=== PATIENT | male | born 1950 | race Hispanic/Latino ===

== ENCOUNTER 2020-02-17 07:33 | Day surgery (SDC) | payer MEDICARE ==
[2020-02-17] MEDS ORDERED: SODIUM CHLORIDE 0.9% 1000ML 1,000 ML IV ONE (08:09)
[2020-02-17 08:20] VITALS: BP 117/60
--- NOTE | 2020-02-17 08:20 | NUR ---
ASSESSMENT PT HERE FOR PROCEDURE. DENIES ANY DISCOMFORT
[2020-02-17] MEDS ORDERED: IOHEXOL-350 50ML VIAL IV ONE (10:53)
[2020-02-17] MEDS ORDERED: IOHEXOL 350 MG/ML 100ML INFUS..BTL IV ONE (10:53)
[2020-02-17 11:35] VITALS: BP 144/84
--- NOTE | 2020-02-17 11:45 | NUR ---
DC DISCHARGE INSTRUCTIONS GIVEN TO PTS DAUGHTER RONNY ON PHONE. INSTRUCTED ON IMPORTANCE OF DRINKING PLENTY OF FLUIDS AT HOME. BOTH VERBALIZED UNDERSTANDING.
== END 2020-02-17 11:45 | disposition home or self-care (01) ==
LOC: DAH 07:33 → EDSTATUS 08:00 → DAH 11:45
PROVIDERS: ATTEND Internal Medicine Cardiovascular Disease
DX: I73.9 Peripheral vascular disease, unspecified (principal)
CPT/HCPCS: 75635; 96360; 96361; A4215; A4216; A4221; A4222; A4223 ×3; A4606; A4663; J7030; Q9967 ×2

== ENCOUNTER 2020-05-05 07:11 | Inpatient (IN) | payer MEDICARE ==
[2020-04-30 15:16] LABS: BASOPHILS % (AUTO) 0.9 % (0.0-5.0); EOSINOPHILS % (AUTO) 2.7 % (0.0-8.0); HEMATOCRIT 41.1 % (42-54); LYMPHOCYTES % (AUTO) 17.3 % (21.0-51.0); MEAN CORPUSCULAR HEMOGLOBIN 29.4 pg (27.0-33.0); MEAN CORPUSCULAR HGB CONC 32.1 g/dL (32.0-36.0); MEAN CORPUSCULAR VOLUME 91.5 fL (79-99); MONOCYTES % (AUTO) 10.4 % (3.0-13.0); NEUTROPHILS % (AUTO) 68.2 % (40.0-77.0); PLATELET COUNT (AUTO) 63 K/uL (130-400); RED BLOOD CELL COUNT(AUTO) 4.49 MIL/uL (4.50-6.20); RED CELL DISTRIBUTION WIDTH 14.6 % (11.0-15.5); WHITE BLOOD COUNT (AUTO) 5.9 K/uL (4.8-10.8)
[2020-04-30 15:31] LABS: INR 0.99 (0.85-1.15); PARTIAL THROMBOPLASTIN TIME 57.3 SEC (26.3-35.5); PROTHROMBIN TIME 10.7 SEC (9.6-11.6)
[2020-04-30 15:35] LABS: HEMOGLOBIN A1C 5.2 % (4.0-6.0)
[2020-04-30 15:39] LABS: ALBUMIN 3.9 g/dL (3.5-5.0); BILIRUBIN,TOTAL 0.6 mg/dL (0.2-1.0); CREATININE 2.3 mg/dL (0.5-1.5); POTASSIUM 4.5 mmol/L (3.5-5.1); TOTAL PROTEIN, SERUM 7.2 g/dL (6.0-8.3)
--- NOTE | 2020-05-04 11:42 | NUR ---
LABS ABNORMAL PLT REPORTED TO DR. KOEHLER , MESSAGE LEFT WITH LETTY SHEA RN. TO CALL BACK WITH ANY ORDERS
[~2020-05-05] VITALS: Ht 175.3 cm; Wt 83.9 kg
[2020-05-05] VITALS (20 sets, daily range): BP systolic 120–175; BP diastolic 52–92
[~2020-05-05 07:11] MED LIST: ACET-66 PO; AEC81 PO; ALBU90AE2 IH; ATOR40TA69 PO; CETI10TA86 PO; CITA10TA7 PO; CLOP75TA14 PO; FERS325 PO; FOLIC ACID PO; HYDRODIURIL PO; METO50TA18 PO; NITR0.4T50 SL; PANT40TA54 PO; TAMS-1 PO; TRAZ-185 PO; VITAMIN D PO
[2020-05-05] MEDS ORDERED: LACTATED RINGERS 1000ML 1,000 ML IV ONE (09:33)
--- NOTE | 2020-05-05 10:10 | NUR ---
PT PREPPED FOR SURGERY. PT IS UNRELIABLE HISTORIAN AND STATES HE TOOK ALL HIS AM MEDS TODAY. HE IS TAKING PLAVIX AND ASPIRIN, DR KOEHLER MADE AWARE. 2 UNITS PRBC/1 PLT ORDERED TO BE ON HAND FOR SURGERY. PT HAS POSITIVE ANTIBODY SCREEN AND BLOOD BANK IS WORKING ON CROSSMATCH NOW.
[2020-05-05] MEDS ORDERED: ALBUTEROL INHALER 90MCG/INH IH PRN ×2 (10:45→13:30)
[2020-05-05] MEDS ORDERED: NITROGLYCERIN 0.4 MG SL TAB SL PRN (10:45)
[2020-05-05] MEDS ORDERED: GLYCOPYRROLATE 1 MG/5 ML SYRINGE ONE ×2 (11:50→13:32)
[2020-05-05] MEDS ORDERED: DEXAMETHASONE SOD PHOSPHATE 10MG/ML 1ML VIAL ONE (11:50)
[2020-05-05] MEDS ORDERED: SUCCINYLCHOLINE 200MG/10ML SYR ONE (11:50)
[2020-05-05] MEDS ORDERED: PROPOFOL 10 MG/ML 20ML VIAL IV ONE (11:50)
[2020-05-05] MEDS ORDERED: LIDOCAINE PF 2% 5ML ABBOJECT ONE ×2 (11:50→11:51)
[2020-05-05] MEDS ORDERED: NEOSTIGMINE 5MG/5ML SYR IV ONE ×2 (11:51→13:32)
[2020-05-05] MEDS ORDERED: ROCURONIUM 10MG/1ML SYR 10 MG/ML ML ONE (11:51)
[2020-05-05] MEDS ORDERED: ONDANSETRON HCL 4 MG/2 ML VIAL ONE (11:51)
[2020-05-05] MEDS ORDERED: CEFUROXIME SODIUM 1.5 GM VIAL ONE (11:59)
[2020-05-05] MEDS ORDERED: MEPERIDINE-PF 25 MG/ML SYG ONE (12:35)
[2020-05-05] MEDS ORDERED: TRAMADOL HCL 50 MG TABLET PO PRN (13:15)
[2020-05-05] MEDS ORDERED: ACETAMINOPHEN 325 MG TAB PO PRN (13:15)
[2020-05-05] MEDS ORDERED: IPRATROPIUM/ALBUTEROL SULFATE 3 ML SOLUTION IH ONE (14:07)
[2020-05-05] MEDS ORDERED: SUGAMMADEX SODIUM 200 MG/2 ML VIAL IV ONE (14:17)
--- NOTE | 2020-05-05 14:50 | NUR ---
LETTY COREA FROM DR. KOEHLER NOTIFIED OF EVENTS IN PACU. DR. TATUM STATED CHEST X RAY SHOWS INFILTRAION . PT COMFORTABLE WITH RESP EVEN AND UNLABORED. Addendum: 05/05/20 at 1546 by AMIRA TREVIZO RN RN Amended: Links added.
--- NOTE | 2020-05-05 15:15 | NUR ---
PT RECEIVED FROM RECOVERY VIA BED, PT LETHARGIC AND CONGESTED, O2 PER NON-REBREATHER MASK, PER TRANSFERRING NURSE, DR KOEHLER AWARE. PEDAL PULSES WEAK AND PALPABLE, DRSG TO RIGH THIGH AND GROIN DRY AND INTACT. ORIENTED PT TO ROOM AND CALL LIGHT. TELEMETRY MONITORING, CALL LIGHT WITHIN REACH.
--- NOTE | 2020-05-05 16:45 | NUR ---
PT MORE ALERT, DENIES DISCOMFORT, O2 PER NON-REBREATHER, O2 SAT 100%. PEDAL PULSES PALPABLE, DRSG TO SURGICAL INCISIONS CLEAN DRY AND INTACT. TELEMETRY MONITORING
--- NOTE | 2020-05-05 17:15 | NUR ---
PT AWAKE, ALERT, AND ORIENTED. DENIES CHEST PAIN, NO LABORED RESPIRATIONS, O2 PER NC, O2 SAT 100%, LESS CONGESTED. RIGHT GROIN INTACT, NO DRAINAGE, NO HEMATOMA, PEDAL PULSES PALPABLE. CALL LIGHT WITHIN REACH
--- NOTE | 2020-05-05 17:45 | NUR ---
PT DENIES DISCOMFORT, MORE ALERT, NO LABORED RESPIRATIONS, O2 PER NON-REBREATHER MASK, O2 SAT 97-100%. SURGICAL SITES INTACT, NO DRAINAGE, PEDAL PULSES PALPABLE. CALL LIGHT WITHIN REACH.
--- NOTE | 2020-05-05 18:15 | NUR ---
AWAKE AND ALERT, ASSISTANCE WITH URINAL. SURGICAL INCISIONS CLEAN DRY AND INTACT, PEDAL PULSES PRESENT TO BILATERAL LOWER EXTREMITIES. CALL LIGHT WITHIN REACH.
[2020-05-05] MEDS: TRAZODONE HCL 50 MG TAB PO SCH (21:25)
[2020-05-05] MEDS: ATORVASTATIN CALCIUM 40 MG TABLET PO SCH (21:25)
[2020-05-06 00:04] VITALS: BP 120/64
[2020-05-06 03:50] VITALS: BP 146/79
[2020-05-06 05:54] LABS: HEMATOCRIT 35.2 % (42-54); MEAN CORPUSCULAR HEMOGLOBIN 29.2 pg (27.0-33.0); MEAN CORPUSCULAR HGB CONC 31.8 g/dL (32.0-36.0); MEAN CORPUSCULAR VOLUME 91.9 fL (79-99); RED BLOOD CELL COUNT(AUTO) 3.83 MIL/uL (4.50-6.20); RED CELL DISTRIBUTION WIDTH 14.4 % (11.0-15.5); WHITE BLOOD COUNT (AUTO) 7.5 K/uL (4.8-10.8)
[2020-05-06] MEDS ORDERED: CEFUROXIME SODIUM 1.5 GM VIAL IVP SCH (06:00)
[2020-05-06 06:08] LABS: CREATININE 2.1 mg/dL (0.5-1.5)
[2020-05-06 07:30] VITALS: BP 146/70
--- NOTE | 2020-05-06 08:00 | NUR ---
AM ASSESSMENT PT AWAKE AND ALERT, DENIES CHEST PAIN, O2 PER NC. SURGICAL SITES TO RIGHT LEG INTACT, NO DRAINAGE OR HEMATOMA, DRSG CLEAN DRY AND INTACT. RIGHT LEG ELEVATED ON 3 PILLOWS ORDERED WHILE IN BED. AMBULATION AND OOB TO CHAIR ENCOURAGED. CALL LIGHT WITHIN REACH.
[2020-05-06] MEDS: FOLIC ACID 1 MG TABLET PO SCH (08:47)
[2020-05-06] MEDS: METOPROLOL TARTRATE 50 MG TAB PO SCH (08:47)
[2020-05-06] MEDS: CETIRIZINE HCL 5 MG TABLET PO SCH (08:48)
[2020-05-06] MEDS: ASPIRIN 81 MG EC TAB PO SCH (08:48)
[2020-05-06] MEDS: FERROUS SULFATE 325 MG TABLET.DR PO SCH (08:48)
[2020-05-06] MEDS: CITALOPRAM 20 MG TABLET PO SCH (08:48)
[2020-05-06] MEDS: CLOPIDOGREL BISULFATE 75 MG TAB PO SCH (08:48)
[2020-05-06] MEDS: PANTOPRAZOLE SODIUM 40 MG TABLET.DR PO SCH (08:48)
[2020-05-06] MEDS: TAMSULOSIN HCL 0.4 MG CAP.ER.24H PO SCH (08:49)
[2020-05-06] MEDS: HYDRODIURIL PO SCH (08:57)
[2020-05-06] MEDS ORDERED: NON-FORMULARY MEDICATION 1 EACH (Citalopram Hydrobromide (Citalopram HBr) 10 MG) PO SCH (09:00)
--- NOTE | 2020-05-06 10:00 | NUR ---
OOB ATTEMPTED TO AMBULATE PT AND TRANSFER TO CHAIR, PT UNABLE TO AMBULATE, STATES WEAK. SAT ON SIDE OF BED. MD TO BE MADE AWARE
[2020-05-06 11:00] VITALS: BP 153/74
--- NOTE | 2020-05-06 12:00 | NUR ---
AWAKE AND ALERT, RIGHT LEG PEDAL PULSE PALPABLE, ABLE TO MOVE LEG, SENSATION PRESENT.
[2020-05-06 16:00] VITALS: BP 115/61
--- NOTE | 2020-05-06 16:00 | NUR ---
DENIES DISCOMFORT, DRSG TO RIGHT GROIN AND RIGHT THIGH CLEAN DRY AND INTACT, SENSATION PRESENT, SLIGHTLY COOL, UNCHANGED FROM ADMISSION, PEDAL PULSES PALPABLE
--- NOTE | 2020-05-06 16:10 | NUR ---
MET WITH PATIENT AT [facility] FOR DC PLANNING- ALSO CALL TO DTR MET Shayan ROSALES- ON 2, FACE BRUISED, HARD TO UNDERSTAND BUT APPROPRIATE. STATES LIVES ALONE, STATES DRIVES IF NEEDED, STATES USES A WALKER, DOES NOT HAVE A SHOWER CHAIR, IS INDEPENDENT, PROVIDER 9-5 DAILY STATES GOES TO AN ADULT DAY CARE - FELL THERE LAST WEEK. DISCUSSED REHAB WITH PATIENT CALL TO [facility] AT [phone], STATES PATIENT WAS AT [facility] IN PAST, A POSITIVE EXPERIENCE; STATES THAT WOULD BE HCOICE NUMBER ONE' CALL TO PRADIP AT [facility], STATES YES BEDS/ WILL SEND REFERRLA THIS PM. Addendum: 05/06/20 at 1614 by KESHAV CAAL RN Amended: Links added.
--- NOTE | 2020-05-06 17:04 | NUR ---
[facility] FOR [facility] WILL START ON REFERRAL Addendum: 05/06/20 at 1704 by KESHAV CAAL RN CM Amended: Links added.
[2020-05-06 20:00] VITALS: BP 120/59
[2020-05-06] MEDS: ATORVASTATIN CALCIUM 40 MG TABLET PO SCH (20:18)
[2020-05-06] MEDS: TRAZODONE HCL 50 MG TAB PO SCH (20:18)
[2020-05-07] VITALS: BP 118/61
--- NOTE | 2020-05-07 00:47 | NUR ---
PATIENT ALERT AND ORIENTED. HE STATES NAME AND . CONFUSED ABOUT LOCATION. THINKS HE IS AT AN ADULT DAY CARE. REORIENTED PATIENT TO TIME AND LOCATION. DENIES PAIN AND NO SIGNS OF RESPIRATORY DISTRESS. PULSES PALPABLE TO BLE WITH 1+ SWELLING. BLE DISCOLORED. PATIENT HAS RLE ELEVATED ON PILLOWS PER ORDER. WILL CONTINUE TO MONITOR.
[2020-05-07 04:00] VITALS: BP 109/64
[2020-05-07 08:00] VITALS: BP 103/67
[2020-05-07] MEDS: TAMSULOSIN HCL 0.4 MG CAP.ER.24H PO SCH (08:08)
[2020-05-07] MEDS: FERROUS SULFATE 325 MG TABLET.DR PO SCH (08:08)
[2020-05-07] MEDS: CLOPIDOGREL BISULFATE 75 MG TAB PO SCH (08:09)
[2020-05-07] MEDS: FOLIC ACID 1 MG TABLET PO SCH (08:09)
[2020-05-07] MEDS: ASPIRIN 81 MG EC TAB PO SCH (08:09)
[2020-05-07] MEDS: METOPROLOL TARTRATE 50 MG TAB PO SCH (08:09)
[2020-05-07] MEDS: PANTOPRAZOLE SODIUM 40 MG TABLET.DR PO SCH (08:09)
[2020-05-07] MEDS: CETIRIZINE HCL 5 MG TABLET PO SCH (08:09)
[2020-05-07] MEDS: CITALOPRAM 20 MG TABLET PO SCH (08:10)
[2020-05-07] MEDS: HYDRODIURIL PO SCH (08:12)
[2020-05-07 12:00] VITALS: BP 115/62
--- NOTE | 2020-05-07 12:35 | NUR ---
AGAIN SPOKE TO PATIENT AT BEDSIDE WITH DAUGHTER RONNY ON PHONE FOR BAKARI/PLAN OF CARE. REFERRAL TO [facility] ORDER PLACED FOR MIGUEL ÁNGEL RAPID FORMS IN CHART FOR MD TO SIGN ON ROUNDS POSS DC TODAY
[2020-05-07] MEDS: TRAMADOL HCL 50 MG TABLET PO PRN (12:56)
[2020-05-07 16:00] VITALS: BP 109/58
[2020-05-07 20:00] VITALS: BP 132/73
[2020-05-07] MEDS: ATORVASTATIN CALCIUM 40 MG TABLET PO SCH (20:44)
[2020-05-07] MEDS: TRAZODONE HCL 50 MG TAB PO SCH (20:44)
[2020-05-08] VITALS (7 sets, daily range): BP systolic 99–126; BP diastolic 54–64
[2020-05-08] MEDS: PANTOPRAZOLE SODIUM 40 MG TABLET.DR PO SCH (08:45)
[2020-05-08] MEDS: FOLIC ACID 1 MG TABLET PO SCH (08:45)
[2020-05-08] MEDS: CITALOPRAM 20 MG TABLET PO SCH (08:45)
[2020-05-08] MEDS: TAMSULOSIN HCL 0.4 MG CAP.ER.24H PO SCH (08:46)
[2020-05-08] MEDS: ASPIRIN 81 MG EC TAB PO SCH (08:46)
[2020-05-08] MEDS: CLOPIDOGREL BISULFATE 75 MG TAB PO SCH (08:46)
[2020-05-08] MEDS: HYDRODIURIL PO SCH (08:47)
[2020-05-08] MEDS: CETIRIZINE HCL 5 MG TABLET PO SCH (08:47)
[2020-05-08] MEDS: FERROUS SULFATE 325 MG TABLET.DR PO SCH (08:47)
[2020-05-08] MEDS: METOPROLOL TARTRATE 50 MG TAB PO SCH (08:47)
--- NOTE | 2020-05-08 14:30 | NUR ---
RESTING IN RECLINER AT BEDSIDE WITH EYES CLOSED, RESP.'S EVEN AND UNLABORED. CALL LIGHT WITHIN REACH. ROOM DOOR OPEN.
--- NOTE | 2020-05-08 17:15 | NUR ---
SITTING UP EATING DINNER W/O C/O. CALL LIGHT WITHIN REACH. ROOM DOOR OPEN.
[2020-05-08] MEDS: TRAZODONE HCL 50 MG TAB PO SCH (20:45)
[2020-05-08] MEDS: ATORVASTATIN CALCIUM 40 MG TABLET PO SCH (20:45)
[2020-05-09 04:01] VITALS: BP 118/58
[2020-05-09 08:10] VITALS: BP 120/65
[2020-05-09] MEDS: HYDRODIURIL PO SCH (09:00)
[2020-05-09] MEDS: METOPROLOL TARTRATE 50 MG TAB PO SCH (09:30)
[2020-05-09] MEDS: PANTOPRAZOLE SODIUM 40 MG TABLET.DR PO SCH (09:31)
[2020-05-09] MEDS: CETIRIZINE HCL 5 MG TABLET PO SCH (09:31)
[2020-05-09] MEDS: CITALOPRAM 20 MG TABLET PO SCH (09:31)
[2020-05-09] MEDS: CLOPIDOGREL BISULFATE 75 MG TAB PO SCH (09:32)
[2020-05-09] MEDS: FOLIC ACID 1 MG TABLET PO SCH (09:32)
[2020-05-09] MEDS: FERROUS SULFATE 325 MG TABLET.DR PO SCH (09:32)
[2020-05-09] MEDS: TAMSULOSIN HCL 0.4 MG CAP.ER.24H PO SCH (09:32)
[2020-05-09] MEDS: ASPIRIN 81 MG EC TAB PO SCH (09:32)
[2020-05-09] MEDS: TRAMADOL HCL 50 MG TABLET PO PRN (09:33)
--- NOTE | 2020-05-09 10:40 | NUR ---
COVID PCR RESULTS SPOKE TO CASE MANAGEMENT C.C.AND INFORMED THAT NEGATIVE COVID PCR RESULTS ARRIVED TODAY. COVID PCR RESULTS WERE PENDING TO PROCEED WITH TRANSFER [place] [facility].
[2020-05-09 12:03] VITALS: BP 129/67
--- NOTE | 2020-05-09 15:00 | NUR ---
cm note spoke to Shantell charge nurse, and to Dr piedra, at [facility] rehab,faxed covid pcr negative, per shantell, pt is accepted. updated primary nurse,
--- NOTE | 2020-05-09 16:00 | NUR ---
REPORT GIVEN [facility] REPORT GIVEN TO NURSE TANISHA OF [facility] IN [place] [phone]. CONFIRMED MEDICATION RECONCILIATION RECEIVED. TANISHA ASKED IF I COULD CALL EMS AFTER PATIENT E[place] [facility] [place] IF I WOULD CALL EMS NOW THERE MAY BE A CHANCE THAT PATIENT WILL NOT GET [place] [facility]
[2020-05-09 16:13] VITALS: BP 128/71
--- NOTE | 2020-05-09 16:38 | NUR ---
[facility] CALLED TO REPORT THAT PATIENT IN ROOM 422 AND READY TO BE PICKED UP AND TRANSFERRED TO [facility] IN [place].
--- NOTE | 2020-05-09 16:53 | NUR ---
FAMILY CALLED CALLED James PAEZ [phone], PATIENT DAUGHTER, TO NOTIFY OF PATIENT TRANSFER TO [facility] TODAY. NO ANSWER AT THIS TIME.
--- NOTE | 2020-05-09 17:00 | NUR ---
REFAXED [facility] PCS FORM RECIEVED CALL FROM [facility] THAT PCS FORM SECTION II QUESTION 3 "CAN PATIENT BE SAFELY TRANSPORTED BY CAR OR WHEELCHAIR VAN WITHOUT NET LEAD ARCHITECT PRESENT" WAS CHECKED OFF "YES". SPOKE WITH KRISTYN Amaya, UPDATED PCS FORM WITH CORRECTED RESPONSE "NO" AND REFAXED PCS FORM TO [facility] [phone]
[2020-05-09 20:00] VITALS: BP 112/67
[2020-05-12] MEDS ORDERED: ERGOCALCIFEROL (VITAMIN D2) 50,000 UNIT CAPSULE PO SCH (09:00)
== END 2020-05-09 21:00 | DRG 254 ==
LOC: DAHIP 07:11 → 4DH 15:43
PROVIDERS: ADMIT Thoracic Surgery (Cardiothoracic Vascular Surgery); ATTEND Thoracic Surgery (Cardiothoracic Vascular Surgery)
PROC: 30233R1 Transfusion of Nonautologous Platelets into Peripheral Vein, Percutaneous Approach (ICD-10-PCS; 2020-05-05)
PROC: 041K0JL Bypass Right Femoral Artery to Popliteal Artery with Synthetic Substitute, Open Approach (ICD-10-PCS; principal; 2020-05-05 11:49)
DX: I73.9 Peripheral vascular disease, unspecified (principal); E87.70 Fluid overload, unspecified; E78.00 Pure hypercholesterolemia, unspecified; E78.1 Pure hyperglyceridemia; J44.9 Chronic obstructive pulmonary disease, unspecified; I25.10 Atherosclerotic heart disease of native coronary artery without angina pectoris; I48.91 Unspecified atrial fibrillation; I10 Essential (primary) hypertension; E78.5 Hyperlipidemia, unspecified; Z79.02 Long term (current) use of antithrombotics/antiplatelets; Z20.828 Contact with and (suspected) exposure to other viral communicable diseases; Z79.82 Long term (current) use of aspirin; Z79.899 Other long term (current) drug therapy; Z95.1 Presence of aortocoronary bypass graft; Z86.73 Personal history of transient ischemic attack (TIA), and cerebral infarction without residual deficits; Z82.49 Family history of ischemic heart disease and other diseases of the circulatory system
CPT/HCPCS: 36415; 36430; 71045; 71046; 80048; 80053; 83036; 85025; 85027; 85610; 85730; 86850; 86870; 86880; 86900; 86901; 86905; 86922; 87426; 93005; 94640; 97039; A4344; A4606; G0378; J0330; J0697; J1100; J1644; J2001; J2175; J2405; J2704; J2710; J3490; J7030; J7040; J7120; P9034; U0003

== ENCOUNTER 2020-07-22 23:38 | Emergency (ER) | payer MEDICARE ==
[~2020-07-22 23:38] MED LIST changes: -CETI10TA86 PO; +CETI10TA87 PO; -CITA10TA7 PO; +CITA10TA89 PO
[2020-07-22] MEDS ORDERED: 0.9%NACL 1000ML 1,000 ML IV ONE (23:39)
[2020-07-23 01:03] LABS: EOSINOPHILS % (AUTO) 0.2 % (0.0-8.0); HEMATOCRIT 29.6 % (42-54); LYMPHOCYTES % (AUTO) 4.2 % (21.0-51.0); MEAN CORPUSCULAR HEMOGLOBIN 27.1 pg (27.0-33.0); MEAN CORPUSCULAR HGB CONC 32.1 g/dL (32.0-36.0); MEAN CORPUSCULAR VOLUME 84.3 fL (79-99); MONOCYTES % (AUTO) 9.8 % (3.0-13.0); NEUTROPHILS % (AUTO) 85.5 % (40.0-77.0); PLATELET COUNT (AUTO) 49 K/uL (130-400); RED BLOOD CELL COUNT(AUTO) 3.51 MIL/uL (4.50-6.20); RED CELL DISTRIBUTION WIDTH 13.6 % (11.0-15.5); WHITE BLOOD COUNT (AUTO) 9.1 K/uL (4.8-10.8)
[2020-07-23 01:13] LABS: POTASSIUM 4.2 mmol/L (3.5-5.1)
[2020-07-23 01:18] LABS: ALBUMIN 2.8 g/dL (3.5-5.0); BILIRUBIN,TOTAL 0.5 mg/dL (0.2-1.0); TOTAL PROTEIN, SERUM 6.8 g/dL (6.0-8.3)
[2020-07-23] MEDS ORDERED: ACETAMINOPHEN 325 MG TAB ONE (12:13)
== END 2020-07-23 13:13 | disposition home or self-care (01) ==
LOC: EDH 23:38
DX: U07.1 COVID-19 (principal); R10.84 Generalized abdominal pain; E78.00 Pure hypercholesterolemia, unspecified; I10 Essential (primary) hypertension; E86.0 Dehydration
CPT/HCPCS: 36415; 74177; 80053; 82150; 83605; 83690; 85025; 87426; 93005; 96360; 96361; 99285; J7030

== ENCOUNTER 2020-07-24 16:34 | Emergency (ER) | payer MEDICARE ==
[~2020-07-24 16:34] MED LIST changes: +CETI10TA86 PO; -CETI10TA87 PO; +CITA10TA7 PO; -CITA10TA89 PO
[2020-07-24 17:57] LABS: BASOPHILS % (AUTO) 0.1 % (0.0-5.0); EOSINOPHILS % (AUTO) 0.1 % (0.0-8.0); HEMATOCRIT 26.3 % (42-54); LYMPHOCYTES % (AUTO) 3.3 % (21.0-51.0); MEAN CORPUSCULAR HEMOGLOBIN 26.7 pg (27.0-33.0); MEAN CORPUSCULAR HGB CONC 31.6 g/dL (32.0-36.0); MEAN CORPUSCULAR VOLUME 84.6 fL (79-99); MONOCYTES % (AUTO) 9.7 % (3.0-13.0); NEUTROPHILS % (AUTO) 86.2 % (40.0-77.0); PLATELET COUNT (AUTO) 59 K/uL (130-400); RED BLOOD CELL COUNT(AUTO) 3.11 MIL/uL (4.50-6.20); RED CELL DISTRIBUTION WIDTH 13.7 % (11.0-15.5); WHITE BLOOD COUNT (AUTO) 8.8 K/uL (4.8-10.8)
[2020-07-24 18:05] LABS: CREATININE 1.8 mg/dL (0.5-1.5); POTASSIUM 4.2 mmol/L (3.5-5.1)
[2020-07-24 18:10] LABS: ALBUMIN 2.4 g/dL (3.5-5.0); BILIRUBIN,TOTAL 0.4 mg/dL (0.2-1.0); TOTAL PROTEIN, SERUM 6.2 g/dL (6.0-8.3)
== END 2020-07-24 19:24 | disposition home or self-care (01) ==
LOC: EDH 16:34
DX: U07.1 COVID-19 (principal); J20.8 Acute bronchitis due to other specified organisms; K42.9 Umbilical hernia without obstruction or gangrene; D64.9 Anemia, unspecified; I73.9 Peripheral vascular disease, unspecified; E78.00 Pure hypercholesterolemia, unspecified; Z86.718 Personal history of other venous thrombosis and embolism
CPT/HCPCS: 36415; 71045; 80053; 83690; 84484; 85025; 93005

== ENCOUNTER 2022-03-27 13:57 | Emergency (ER) | payer OTHER, MEDICARE ==
[~2022-03-27] VITALS: Ht 170.2 cm; Wt 63.5 kg
[~2022-03-27 13:57] MED LIST changes: -CETI10TA86 PO; +CETI10TA87 PO; -CITA10TA7 PO; +CITA10TA89 PO
[2022-03-27 14:25] LABS: APPEARANCE,URINE CLEAR (CLEAR); BILIRUBIN,URINE NEGATIVE (NEGATIVE); COLOR,URINE YELLOW (YELLOW); GLUCOSE, URINE (UA) NEGATIVE (NEGATIVE); KETONES,URINE NEGATIVE (NEGATIVE); LEUKOCYTE ESTERASE ,URINE NEGATIVE (NEGATIVE); NITRATE,URINE NEGATIVE (NEGATIVE); OCCULT BLOOD,URINE NEGATIVE (NEGATIVE); PH,URINE 5.5 (5.0-8.0); PROTEIN,URINE NEGATIVE (NEGATIVE); UROBILINOGEN,URINE 0.2 mg/dL (0.2-1.0)
[2022-03-27 14:28] LABS: BASOPHILS % (AUTO) 0.6 % (0.0-5.0); EOSINOPHILS % (AUTO) 1.9 % (0.0-8.0); HEMATOCRIT 45.8 % (42-54); LYMPHOCYTES % (AUTO) 5.7 % (21.0-51.0); MEAN CORPUSCULAR HEMOGLOBIN 29.6 pg (27.0-33.0); MEAN CORPUSCULAR HGB CONC 34.5 g/dL (32.0-36.0); MEAN CORPUSCULAR VOLUME 85.8 fL (79-99); MONOCYTES % (AUTO) 7.9 % (3.0-13.0); NEUTROPHILS % (AUTO) 83.5 % (40.0-77.0); PLATELET COUNT (AUTO) 65 K/uL (130-400); RED BLOOD CELL COUNT(AUTO) 5.34 MIL/uL (4.50-6.20); WHITE BLOOD COUNT (AUTO) 8.3 K/uL (4.8-10.8)
[2022-03-27 14:35] LABS: CREATININE 2.9 mg/dL (0.5-1.5); POTASSIUM 3.4 mmol/L (3.5-5.1)
[2022-03-27 14:40] LABS: ALBUMIN 4.1 g/dL (3.5-5.0)
[2022-03-27 15:27] LABS: PLATELET MORPHOLOGY COMMENT DECREASED
[2022-03-27] MEDS ORDERED: KETOROLAC 60 MG VIAL (30MG/ML) IM STA (15:30)
[2022-03-27] MEDS ORDERED: IOHEXOL 350 MG/ML 100ML INFUS..BTL IV ONE (15:31)
[2022-03-27] MEDS ORDERED: KETOROLAC 30MG VIAL (30MG/ML) IVP ONE (16:00)
[2022-03-27 19:07] VITALS: BP 152/86
== END 2022-03-27 19:20 | disposition home or self-care (01) ==
LOC: EDH 13:57
DX: R10.30 Lower abdominal pain, unspecified (principal); K59.00 Constipation, unspecified; I10 Essential (primary) hypertension; Z79.899 Other long term (current) drug therapy; Z98.890 Other specified postprocedural states
CPT/HCPCS: 99285; 74176; 96374; 71045; 80053; 85025; 81003; 36415; 93005; J1885; Q9967